=== PATIENT | female | born 1985 | race Caucasian/White ===

== ENCOUNTER → 2021-04-26 19:57 | Outpatient (CLI) | payer OTHER, SELFPAY | PROVIDERS: PCP Physician Assistant; Referring Provider Internal Medicine; Visit Provider Internal Medicine | DX: Z23 Encounter for immunization (principal) | CPT/HCPCS: 90471; 90686 ==

== ENCOUNTER 2021-07-25 10:35 | Emergency (ER) | payer OTHER, SELFPAY ==
[2021-07-25] VITALS (10 sets, daily range): BP systolic 124–159; BP diastolic 76–81; PULSE 70–83; RESP 13–20; TEMP 36.7; O2SAT 98–100; BMI 49.8
--- NOTE | 2021-07-25 10:52 | ED.GIBLEED ---
HPI - GI Bleed General Chief complaint: GI Bleed Stated complaint: diarrhea for 3 days, black this morning Time Seen by Provider: 07/25/21 10:38 Source: patient Mode of arrival: Ambulatory History of Present Illness HPI Narrative: Patient is a 36-year-old female who is here for evaluation of 3 days of diarrhea and 1 day of black colored stools. No recent travel. No recent antibiotic use. No one else in the house has symptoms. Some nausea but no vomiting. No fevers. Has generalized abdominal discomfort. Contacted her doctor today and was told to come to the emergency department for concerns of diverticulitis. Has never had symptoms like this in the past. Related Data Home Medications Medication Instructions Recorded Confirmed ibuprofen 800 mg tablet 800 mg PO Q8H 03/22/21 04/12/21 omeprazole 20 mg capsule,delayed 20 mg PO DAILY 03/22/21 04/12/21 release Previous Rx's Medication Instructions Recorded baclofen 10 mg tablet 10 mg PO QID #60 tab NS 02/05/21 cyclobenzaprine 10 mg tablet 10 mg PO BEDTIME PRN #30 tab 04/12/21 methocarbamol 500 mg tablet 500 mg PO TID PRN #60 tab 04/12/21 gabapentin 100 mg capsule See Rx Instructions .ROUTE 05/28/21 .COMPLEX #180 cap Allergies Allergy/AdvReac Type Severity Reaction Status Date / Time No Known Drug Allergies Allergy Verified 07/25/21 10:43 Review of Systems Constitutional Constitutional: Reports chills and Denies fever(s) Gastrointestinal Gastrointestinal: Reports as per HPI and Reports system reviewed and no additional complaints, except as documented Genitourinary Genitourinary: Reports system reviewed and no additional complaints, except as documented Hematologic/Lymphatic On Anticoagulants: No Patient History Medical History Lumbar spondylosis Social History Smoking Status: Never smoker Smoking Status: Never smoker alcohol intake frequency: holidays/special occasions only Substance Use Type: marijuana Exam Initial Vital Signs Initial Vital Signs: Vital Signs Temperature 98.0 F 07/25/21 10:38 Pulse Rate 82 07/25/21 10:38 Respiratory Rate 18 07/25/21 10:38 Blood Pressure 159/77 H 07/25/21 10:38 Pulse Oximetry 100 07/25/21 10:38 [facility] Head: normal to inspection Resp Effort & Inspection: normal respiratory effort Cardio Rate: regular rate GI Palpation: soft, No firm, No guarding and tender Skin General: no rashes or lesions noted Neuro General: patient alert, patient awake and moves all extremities Extrem General: normal to inspection Psych Appearance: grossly normal and well kempt Course Orders Ordered: Discontinued Medications Sodium Chloride (Normal Saline 0.9%) 1,000 mls @ 1,000 mls/hr IV BOLUS ONE Stop: 07/25/21 11:50 Last Infusion: 07/25/21 13:06 Dose: 0 mls/hr Documented by: JULIO C Admin: 07/25/21 11:33 Dose: 1,000 mls/hr Documented by: JULIO C Vital Signs Vital signs: Vital Signs - 8 hr 07/25/21 10:38 Temperature 98.0 F Pulse Rate 82 Respiratory Rate 18 Blood Pressure 159/77 H Pulse Oximetry 100 MDM - GI Bleed Lab Data Result diagrams: 07/25/21 10:45 07/25/21 10:45 Labs: Lab Results 07/25/21 07/25/21 07/25/21 Range/Units 10:45 10:45 10:45 WBC 5.1 (4.5-11.0) X10^3/uL RBC 4.66 (4.0-5.2) X10^6/uL Hgb 12.0 (12.0-16.0) g/dL Hct 36.9 (36-46) % MCV 79.1 L (80-100) fL MCH 25.7 L (26-34) PG MCHC 32.5 (30-36) % RDW 16.0 H (11.6-14.8) % Plt Count 333 (150-400) X10^3/uL Neut % (Auto) 53.2 (50-75) % Lymph % (Auto) 30.5 (25-40) % [place] % (Auto) 13.3 (3-14) % Eos % (Auto) 2.1 (2-4) % Baso % (Auto) 0.9 (0-2) % Neut # (Auto) 2700 (5129-6370) /uL Lymph # (Auto) 1500 (3518-3845) /uL T[place] # (Auto) 700 (0-900) /uL Eos # (Auto) 100 (0-450) /uL Baso # (Auto) 0 (0-100) /uL Sodium 141 (137-145) mmol/L Potassium 3.8 (3.4-5.1) mmol/L Chloride 106 (98-107) mmol/L Carbon Dioxide 29 (22-32) mmol/L BUN 10 (7-17) mg/dL Creatinine 0.69 (0.52-1.04) mg/dL Estimated GFR > 60.0 (>60) mL/min BUN/Creatinine Ratio 14.5 (6-22) Glucose 107 H (70-100) mg/dL Calcium 9.3 (8.4-10.2) mg/dL Serum , Qual Negative (Negative) Stl C. cayetanensis PCR (Not Detect) Stool Rotavirus (PCR) (Not Detect) Stool Adenovirus (PCR) (Not Detect) Stool Astrovirus (PCR) (Not Detect) Stool Cryptosporidium PCR (Not Detect) Stl E.coli Shiga Tox PCR (Not Detect) St Sh/Enteroin Ecoli PCR (Not Detect) Stool E coli O157 PCR (Not Detect) Stl Enterotoxigenic E PCR (Not Detect) Stool EPEC (PCR) (Not Detect) Stl E. histolytica PCR (Not Detect) Stool Giardia Lamblia PCR (Not Detect) Stool Sapovirus (PCR) (Not Detect) Stl P. shigelloides PCR (Not Detect) St Y.enterocolitica PCR (Not Detect) Stool Vibrio (PCR) (Not Detect) Stl Vibrio cholerae PCR (Not Detect) Stl Enteroaggr Ecoli PCR (Not Detect) Stl Norovirus GI/GII PCR (Not Detect) Campylobacter (PCR) (Not Detect) C. difficile Tox (PCR) (Not Detect) Salmonella (PCR) (Not Detect) 07/25/21 Range/Units 11:05 WBC (4.5-11.0) X10^3/uL RBC (4.0-5.2) X10^6/uL Hgb (12.0-16.0) g/dL Hct (36-46) % MCV (80-100) fL MCH (26-34) PG MCHC (30-36) % RDW (11.6-14.8) % Plt Count (150-400) X10^3/uL Neut % (Auto) (50-75) % Lymph % (Auto) (25-40) % T[place] % (Auto) (3-14) % Eos % (Auto) (2-4) % Baso % (Auto) (0-2) % Neut # (Auto) (3086-0074) /uL Lymph # (Auto) (2502-1387) /uL Tarrant # (Auto) (0-900) /uL Eos # (Auto) (0-450) /uL Baso # (Auto) (0-100) /uL Sodium (137-145) mmol/L Potassium (3.4-5.1) mmol/L Chloride (98-107) mmol/L Carbon Dioxide (22-32) mmol/L BUN (7-17) mg/dL Creatinine (0.52-1.04) mg/dL Estimated GFR (>60) mL/min BUN/Creatinine Ratio (6-22) Glucose (70-100) mg/dL Calcium (8.4-10.2) mg/dL Serum , Qual (Negative) Stl C. cayetanensis PCR Not detected (Not Detect) Stool Rotavirus (PCR) Not detected (Not Detect) Stool Adenovirus (PCR) Not detected (Not Detect) Stool Astrovirus (PCR) Not detected (Not Detect) Stool Cryptosporidium PCR Not detected (Not Detect) Stl E.coli Shiga Tox PCR Not detected (Not Detect) St Sh/Enteroin Ecoli PCR Not detected (Not Detect) Stool E coli O157 PCR Not detected (Not Detect) Stl Enterotoxigenic E PCR Not detected (Not Detect) Stool EPEC (PCR) Not detected (Not Detect) Stl E. histolytica PCR Not detected (Not Detect) Stool Giardia Lamblia PCR Not detected (Not Detect) Stool Sapovirus (PCR) Not detected (Not Detect) Stl P. shigelloides PCR Not detected (Not Detect) St Y.enterocolitica PCR Not detected (Not Detect) Stool Vibrio (PCR) Not detected (Not Detect) Stl Vibrio cholerae PCR Not detected (Not Detect) Stl Enteroaggr Ecoli PCR Not detected (Not Detect) Stl Norovirus GI/GII PCR Not detected (Not Detect) Campylobacter (PCR) Not detected (Not Detect) C. difficile Tox (PCR) Not detected (Not Detect) Salmonella (PCR) Not detected (Not Detect) Imaging Data CT scan - abdomen/pelvis: Radiologist's Impression: [address] [address] [address] Scan Report Signed Patient: Erlinda Waldrop MR#: [id number] : 1985 Acct:[id number] Age/Sex: 36 / F Date of Service: 07/25/21 Loc: ED Accession Number: [id number] ?? Procedure: CT abdomen pelvis w con Ordering Provider: Ganesh Heck D.O. PROCEDURE:? CT ABDOMEN PELVIS W CON ? INDICATIONS:? Diarrhea, little pain concern for diverticulitis ? TECHNIQUE:? After the administration of intravenous contrast, axial sections acquired from the lung bases to the pubic symphysis.? Coronal and sagittal reformats were performed.? For radiation dose reduction, the following was used:? automated exposure control, adjustment of mA and/or kV according to patient size.? ? COMPARISON:? None. ? FINDINGS:? Image quality:? Excellent.? ? Lung bases:? Unremarkable. Heart:? No significant findings. ? ABDOMEN: Liver:? Unremarkable.? ? Gallbladder:? Unremarkable.? ? Biliary ducts:? Unremarkable.? ? Pancreas:? Unremarkable.? ? Spleen:? Unremarkable.? ? Adrenal Glands:? Unremarkable.? ? Kidneys and Ureters:? Unremarkable.? ? ? Stomach and Bowel:? Liquid colonic contents.? Stomach, small bowel loops, and colon are otherwise unremarkable.? Normal appendix. Peritoneum:? No abnormal intraperitoneal fluid.? No free air.? ? Ventral Wall: ? Tiny periumbilical hernia containing fat. Abdominal Nodes:? No retroperitoneal or mesenteric adenopathy by size criteria.? Vessels:? Aorta and inferior vena cava are normal in size.? ? PELVIS: Pelvic Organs:? Bilateral cystic adnexa, within normal limits. Bladder:? Unremarkable.? ? Pelvic Nodes: No enlarged lymph nodes.? Miscellaneous: No hernias are seen.? ? In the subcutaneous fat of the right anterior lateral region just above the inguinal ligament, is an ill-defined soft tissue density measuring 2.1 x 3.2 cm.? Further evaluation with ultrasound is suggested.? Reference image 76/2.? ? Bones:? Unremarkable.? IMPRESSION:? ? 1. No evidence of acute abdominal process. ? 2. There is a ill-defined soft tissue density in the inferior right anterolateral subcutaneous fat, above the inguinal ligament.? It measures 2.1 x 3.2 cm.? It is of uncertain etiology.? It may potentially be related to previous section.? This is not definite. ? Comment:? Recommend correlation with ultrasound for further characterization.? ? Dictated by: Valentino Hull M.D. on 07/25/2021 at 11:39 ? ? Approved by: Valentino Hull M.D. on 07/25/2021 at 11:45?? MDM Narrative Medical decision making narrative: Patient's labs and CT scan are unremarkable. There is no infection noted on the GI panel that would necessitate antibiotics. She does have a benign exam. No indication for surgical consultation. Will discharge home with symptom control and strict return precautions. She expressed understanding and agreement. Discharge Plan Departure Patient Disposition: Home Clinical Impression: Diarrhea Instructions: Diarrhea Activity Restrictions/Additional Instructions: I recommend that you increase your fluid intake and advance your diet as tolerated. You can consider taking a anti diarrheal medicine such as Imodium/loperamide. You can purchase this [id number]. Return to the emergency department for any new or worsening symptoms. Prescriptions: No Action baclofen 10 mg tablet 10 mg PO QID Qty: 60 0RF gabapentin 100 mg capsule See Rx Instructions .ROUTE .COMPLEX Qty: 180 0RF Dose Instruction: TAKE ONE CAPSULE BY MOUTH TWICE A DAY AND TAKE 2-3 CAPSULES BY MOUTH AT BEDTIME NEEDED Rx Instructions: TAKE ONE CAPSULE BY MOUTH TWICE A DAY AND TAKE 2-3 CAPSULES BY MOUTH AT BEDTIME NEEDED ibuprofen 800 mg tablet 800 mg PO Q8H 0RF omeprazole 20 mg capsule,delayed release(DR/EC) 20 mg PO DAILY 0RF methocarbamol 500 mg tablet 500 mg PO TID PRN (Reason: Muscle strain) Qty: 60 1RF cyclobenzaprine 10 mg tablet 10 mg PO BEDTIME PRN (Reason: muscle spasm) Qty: 30 1RF Referrals: Mar Ko PA-C [Primary Care Provider] -
[2021-07-25 10:58] LABS: Add Manual Diff / Slide Review NO; Basophils Absolute Auto 0 /uL (0-100); Basophils Percent Auto 0.9 % (0-2); Eosinophils Absolute Auto 100 /uL (0-450); Eosinophils Percent Auto 2.1 % (2-4); Hematocrit 36.9 % (36-46); Lymphocytes Absolute Auto 1500 /uL (1100-4500); Lymphocytes Percent Auto 30.5 % (25-40); Mean Corpuscular HGB Conc 32.5 % (30-36); Mean Corpuscular Hemoglobin 25.7 PG (26-34); Mean Corpuscular Volume 79.1 fL (80-100); Monocytes Absolute Auto 700 /uL (0-900); Monocytes Percent Auto 13.3 % (3-14); Neutrophils Absolute Auto 2700 /uL (1500-7000); Neutrophils Percent Auto 53.2 % (50-75); Platelet Count 333 X10^3/uL (150-400); Red Blood Cell Count 4.66 X10^6/uL (4.0-5.2); White Blood Cell Count 5.1 X10^3/uL (4.5-11.0)
--- NOTE | 2021-07-25 11:02 | PC.NURSE ---
frankly bloody red stool, half blood half dark brown loose stools
--- NOTE | 2021-07-25 11:05 | DI.CT.S_ITS ---
PROCEDURE: CT ABDOMEN PELVIS W CON INDICATIONS: Diarrhea, little pain concern for diverticulitis TECHNIQUE: After the administration of intravenous contrast, axial sections acquired from the lung bases to the pubic symphysis. Coronal and sagittal reformats were performed. For radiation dose reduction, the following was used: automated exposure control, adjustment of mA and/or kV according to patient size. COMPARISON: None. FINDINGS: Image quality: Excellent. Lung bases: Unremarkable. Heart: No significant findings. ABDOMEN: Liver: Unremarkable. Gallbladder: Unremarkable. Biliary ducts: Unremarkable. Pancreas: Unremarkable. Spleen: Unremarkable. Adrenal Glands: Unremarkable. Kidneys and Ureters: Unremarkable. Stomach and Bowel: Liquid colonic contents. Stomach, small bowel loops, and colon are otherwise unremarkable. Normal appendix. Peritoneum: No abnormal intraperitoneal fluid. No free air. Ventral Wall: Tiny periumbilical hernia containing fat. Abdominal Nodes: No retroperitoneal or mesenteric adenopathy by size criteria. Vessels: Aorta and inferior vena cava are normal in size. PELVIS: Pelvic Organs: Bilateral cystic adnexa, within normal limits. Bladder: Unremarkable. Pelvic Nodes: No enlarged lymph nodes. Miscellaneous: No hernias are seen. In the subcutaneous fat of the right anterior lateral region just above the inguinal ligament, is an ill-defined soft tissue density measuring 2.1 x 3.2 cm. Further evaluation with ultrasound is suggested. Reference image 76/2. Bones: Unremarkable. IMPRESSION: 1. No evidence of acute abdominal process. 2. There is a ill-defined soft tissue density in the inferior right anterolateral subcutaneous fat, above the inguinal ligament. It measures 2.1 x 3.2 cm. It is of uncertain etiology. It may potentially be related to previous section. This is not definite. Comment: Recommend correlation with ultrasound for further characterization. Dictated by: Valentino Hull M.D. on 07/25/2021 at 11:39 Approved by: Valentino Hull M.D. on 07/25/2021 at 11:45
[2021-07-25 11:08] LABS: BUN Creatinine Ratio 14.5 (6-22); Blood Urea Nitrogen 10 mg/dL (7-17); Calcium 9.3 mg/dL (8.4-10.2); Carbon Dioxide 29 mmol/L (22-32); Chloride 106 mmol/L (98-107); Estimated Glomerular Filt Rate > 60.0 mL/min (>60); Glucose 107 mg/dL (70-100); HEMOLYSIS < 15 (0-50); Potassium 3.8 mmol/L (3.4-5.1); Sodium 141 mmol/L (137-145)
[2021-07-25 11:20] LABS: Pregnancy Test Serum,Qual Negative (Negative)
[2021-07-25] MEDS: SODIUM CHLORIDE 0.9% 1,000 ML 1000 ML IV (11:33)
[2021-07-25 12:50] LABS: Adenovirus F 40/41 Not Detected (Not Detect); Astrovirus Not Detected (Not Detect); Campylobacter Not Detected (Not Detect); Clostridium difficile toxin AB Not Detected (Not Detect); Cryptosporidium Not Detected (Not Detect); Cyclospora cayetanensis Not Detected (Not Detect); Entamoeba histolytica Not Detected (Not Detect); Enteroaggregative E.coli Not Detected (Not Detect); Enteropathogenic E.coli Not Detected (Not Detect); Enterotoxigenic E.coli It/st Not Detected (Not Detect); Giardia lamblia Not Detected (Not Detect); Norovirus GI/GII Not Detected (Not Detect); Plesiomonsa shigelloides Not Detected (Not Detect); Rotavirus A Not Detected (Not Detect); Salmonella Not Detected (Not Detect); Sapovirus Not Detected (Not Detect); Shiga-like toxin-prod E.coli Not Detected (Not Detect); Shigella/Enteroinvasive E.coli Not Detected (Not Detect); Vibrio Not Detected (Not Detect); Vibrio cholerae Not Detected (Not Detect); Yersinia enterocolitica Not Detected (Not Detect)
== END 2021-07-25 13:23 | disposition home or self-care (01) ==
PROVIDERS: Emergency Provider Emergency Medicine; PCP Physician Assistant
DX: R19.7 Diarrhea, unspecified (principal); K92.1 Melena
CPT/HCPCS: 36415; 74177; 80048; 84703; 85025; 87507; 96360; 96361; 99284

== ENCOUNTER → 2022-01-04 08:13 | Outpatient (CLI) | payer OTHER, SELFPAY ==
[2022-01-04 18:44] LABS: Cholesterol 180 mg/dL (140-199); HDL Cholesterol 26 mg/dL (40-60); LDL Cholesterol Calculated 89 mg/dL (<100); Triglycerides 326 mg/dL (35-150)
[2022-01-04 20:01] LABS: Hemoglobin A1C% w Est Avg Glu 6.5 % (4.0-6.0)
== END ==
PROVIDERS: PCP Physician Assistant; Visit Provider Physician Assistant
DX: E66.01 Morbid (severe) obesity due to excess calories (principal); R73.03 Prediabetes
CPT/HCPCS: 80061; 83036

== ENCOUNTER → 2022-01-16 10:31 | Outpatient (CLI) | payer OTHER, SELFPAY ==
[2022-01-16 20:39] LABS: Alanine Aminotransferase 23 IU/L (<35); Albumin Globulin Ratio 1.2 (1.0-2.8); Alkaline Phosphatase 67 U/L (38-126); Aspartate Aminotransferase 21 IU/L (14-36); BUN Creatinine Ratio 18.1 (6-22); Bilirubin Total 0.7 mg/dL (0.2-1.3); Blood Urea Nitrogen 15 mg/dL (7-17); Calcium 9.1 mg/dL (8.4-10.2); Carbon Dioxide 26 mmol/L (22-32); Chloride 105 mmol/L (98-107); Estimated Glomerular Filt Rate > 60 mL/min (>60); Globulin 3.3 g/dL (1.7-4.1); Glucose 103 mg/dL (70-100); HEMOLYSIS < 15 (0-50); Potassium 4.3 mmol/L (3.4-5.1); Sodium 139 mmol/L (137-145); Total Protein 7.3 g/dL (6.3-8.2)
[2022-01-17 20:29] LABS: Appearance Urine UA CLEAR; Bilirubin Urine UA NEGATIVE (NEGATIVE); Color Urine UA YELLOW; Glucose Urine UA NEGATIVE (Negative); Ketones Urine UA NEGATIVE (NEGATIVE); Leukocyte Esterase Urine UA NEGATIVE (NEGATIVE); Nitrite Urine UA NEGATIVE (Negative); Occult Blood Urine UA NEGATIVE (Negative); Protein Urine UA NEGATIVE (Negative); Urobilinogen Urine UA 0.2 E.U./dL (0.2)
[2022-01-17 21:18] LABS: Bacteria Urine Few (2-10); Calcium Oxalate Crystals Urine Occasional; Mucus Urine 2+ (Negative); RBC Urine None Seen (0-5/HPF); Squamous Epithelial Cell Urine 1-5 /HPF (0-5/HPF); WBC Urine None Seen (0-5/HPF)
[2022-01-17 21:19] LABS: Culture Indicated Urine Cult Not Indicated
== END ==
PROVIDERS: PCP Physician Assistant; Visit Provider Physician Assistant
DX: R19.7 Diarrhea, unspecified (principal); T50.905A Adverse effect of unspecified drugs, medicaments and biological substances, initial encounter; R30.0 Dysuria
CPT/HCPCS: 80053; 81001

== ENCOUNTER → 2022-03-28 09:19 | Outpatient (CLI) | payer OTHER, SELFPAY ==
[2022-03-28 19:13] LABS: Add Manual Diff / Slide Review NO; Basophils Absolute Auto 100 /uL (0-100); Basophils Percent Auto 0.7 % (0-2); Eosinophils Absolute Auto 500 /uL (0-450); Eosinophils Percent Auto 6.4 % (2-4); Hematocrit 36.8 % (36-46); Hemoglobin 12.1 g/dL (12.0-16.0); Lymphocytes Absolute Auto 1800 /uL (1100-4500); Lymphocytes Percent Auto 22.4 % (25-40); Mean Corpuscular Hemoglobin 26.2 PG (26-34); Mean Corpuscular Volume 79.4 fL (80-100); Monocytes Absolute Auto 500 /uL (0-900); Monocytes Percent Auto 5.6 % (3-14); Neutrophils Absolute Auto 5200 /uL (1500-7000); Neutrophils Percent Auto 64.9 % (50-75); Platelet Count 303 X10^3/uL (150-400); Red Blood Cell Count 4.63 X10^6/uL (4.0-5.2); Red Cell Distribution Width 16.2 % (11.6-14.8)
[2022-03-28 19:16] LABS: Alanine Aminotransferase 25 IU/L (<35); Albumin 3.9 g/dL (3.5-5.0); Albumin Globulin Ratio 1.2 (1.0-2.8); Alkaline Phosphatase 65 U/L (38-126); Aspartate Aminotransferase 24 IU/L (14-36); BUN Creatinine Ratio 17.8 (6-22); Bilirubin Total 0.6 mg/dL (0.2-1.3); Blood Urea Nitrogen 13 mg/dL (7-17); Carbon Dioxide 25 mmol/L (22-32); Chloride 104 mmol/L (98-107); Estimated Glomerular Filt Rate > 60 mL/min (>60); Globulin 3.3 g/dL (1.7-4.1); Glucose 140 mg/dL (70-100); HEMOLYSIS < 15 (0-50); Lipase 73 U/L (23-300); Sodium 140 mmol/L (137-145); Total Protein 7.2 g/dL (6.3-8.2)
[2022-03-28 19:51] LABS: TSH w/ Reflex to FT4 1.11 uIU/mL (0.47-4.68)
== END ==
PROVIDERS: PCP Physician Assistant; Visit Provider Physician Assistant
DX: R10.9 Unspecified abdominal pain (principal); R19.7 Diarrhea, unspecified
CPT/HCPCS: 80053; 83690; 84443; 85025

== ENCOUNTER → 2022-04-15 13:22 | Outpatient (CLI) | payer OTHER, SELFPAY | PROVIDERS: PCP Physician Assistant; Referring Provider Internal Medicine; Visit Provider Internal Medicine | DX: Z23 Encounter for immunization (principal) | CPT/HCPCS: 90471; 90686 ==

== ENCOUNTER → 2022-04-22 10:53 | Outpatient (CLI) | payer OTHER, SELFPAY ==
[2022-04-22 19:19] LABS: Hemoglobin A1C% w Est Avg Glu 5.6 % (4.0-6.0)
== END ==
PROVIDERS: PCP Physician Assistant; Visit Provider Physician Assistant
DX: E11.69 Type 2 diabetes mellitus with other specified complication (principal); E66.9 Obesity, unspecified
CPT/HCPCS: 83036

== ENCOUNTER → 2022-07-31 09:04 | Outpatient (CLI) | payer OTHER, SELFPAY ==
--- NOTE | 2022-07-31 09:05 | DI.US.S_ITS ---
PROCEDURE: US ABDOMEN LIMITED INDICATIONS: RLQ LUMP ON CT TECHNIQUE: Real-time focused scanning was performed of the abdomen, with image documentation. COMPARISON: [facility], CT, CT ABDOMEN PELVIS W EDI, 07/25/2021, 11:02. FINDINGS: There is a 1.7 x 2.0 x 3.0 cm mass without increased vascularity in the subcutaneous fat of the right lower quadrant. This does not communicate with the peritoneal space. IMPRESSION: Hypoechoic mass within the right lower quadrant subcutaneous fat. This is located at the margin of a Caesarean section scar and may represent scar tissue. If prior imaging can be obtained, comparison can be made and an addendum can be issued. Alternatively, 3-6 month follow-up is recommended to ensure stability of this finding. Dictated by: Alysa Churchill M.D. on 07/31/2022 at 10:48 Approved by: Alysa Churchill M.D. on 07/31/2022 at 10:53
== END ==
PROVIDERS: PCP Physician Assistant; Referring Provider Physician Assistant; Visit Provider Physician Assistant
DX: R19.03 Right lower quadrant abdominal swelling, mass and lump (principal)
CPT/HCPCS: 76705

== ENCOUNTER 2023-02-13 10:57 | Emergency (ER) | payer OTHER, SELFPAY ==
[2023-02-13] VITALS (9 sets, daily range): BP systolic 136–160; BP diastolic 67–90; PULSE 65–79; RESP 15–18; TEMP 36.9; O2SAT 96–100; BMI 51.0
[2023-02-13 11:38] LABS: Add Manual Diff / Slide Review NO; Basophils Absolute Auto 100 /uL (0-100); Basophils Percent Auto 0.8 % (0-2); Eosinophils Absolute Auto 200 /uL (0-450); Eosinophils Percent Auto 2.2 % (2-4); Hematocrit 36.4 % (36-46); Lymphocytes Absolute Auto 1900 /uL (1100-4500); Lymphocytes Percent Auto 21.3 % (25-40); Mean Corpuscular HGB Conc 32.8 % (30-36); Mean Corpuscular Hemoglobin 25.7 PG (26-34); Mean Corpuscular Volume 78.3 fL (80-100); Monocytes Absolute Auto 600 /uL (0-900); Monocytes Percent Auto 6.2 % (3-14); Neutrophils Absolute Auto 6200 /uL (1500-7000); Neutrophils Percent Auto 69.5 % (50-75); Platelet Count 328 X10^3/uL (150-400); Red Blood Cell Count 4.65 X10^6/uL (4.0-5.2)
[2023-02-13 11:46] LABS: Alanine Aminotransferase 25 IU/L (<35); Albumin 4.2 g/dL (3.5-5.0); Albumin Globulin Ratio 1.1 (1.0-2.8); Alkaline Phosphatase 68 U/L (38-126); Aspartate Aminotransferase 22 IU/L (14-36); Bilirubin Total 0.6 mg/dL (0.2-1.3); Blood Urea Nitrogen 13 mg/dL (7-17); Calcium 9.1 mg/dL (8.4-10.2); Carbon Dioxide 28 mmol/L (22-32); Chloride 105 mmol/L (98-107); Estimated Glomerular Filt Rate > 60 mL/min (>60); Globulin 3.7 g/dL (1.7-4.1); Glucose 110 mg/dL (70-100); HEMOLYSIS 15 (0-50); Lipase 75 U/L (23-300); Sodium 139 mmol/L (137-145); Total Protein 7.9 g/dL (6.3-8.2)
--- NOTE | 2023-02-13 11:48 | ED_ITS ---
HPI - Abdominal Pain <Komal Smith [employer] - Last Filed: 02/13/23 16:09> General Chief Complaint: Abdominal Pain Stated Complaint: rt side flank pain Time Seen by Provider: 02/13/23 11:48 Source: patient Mode of arrival: Ambulatory History of Present Illness HPI narrative: This is a 37-year-old female presents emergency department complaining right- sided abdominal pain which has been worsening over the last 2 days. She states that yesterday she had a low-grade fever of 99.8 F, has had right upper and right lower quadrant pain that seems progressive. She endorses nausea without vomiting, has diarrhea, denies any blood in her stool. Denies any respiratory symptoms including cough or congestion. States that she has a history of a tubal ligation with 3 C sections in the past, history of ovarian cyst. Denies any other abdominal surgeries. Denies dysuria urinary frequency, states that the pain wraps around to her flank area. When she was evaluated by Dr. Satish Walker for right lower quadrant tenderness to palpation and was sent in for further evaluation with advanced imaging. Related Data Home Medications Medication Instructions Recorded Confirmed omeprazole 20 mg capsule,delayed 20 mg PO DAILY 03/22/21 02/12/23 release Previous Rx's Medication Instructions Recorded tramadol 50 mg tablet 50 mg PO TID PRN pain #21 tabs 04/02/22 semaglutide 0.25 mg or 0.5 mg (2 See Rx Instructions .Route 05/16/22 mg/1.5 mL) subcutaneous pen .COMPLEX #1.5 mL injector (Ozempic) tramadol 50 mg tablet 50 mg PO Q6H PRN pain #28 tabs 05/28/22 baclofen 10 mg tablet See Rx Instructions .Route 01/16/23 .COMPLEX #60 tabs cyclobenzaprine 10 mg tablet 10 mg PO TID PRN muscle spasm #30 01/16/23 tabs gabapentin 100 mg capsule See Rx Instructions .Route 01/16/23 .COMPLEX #180 caps ibuprofen 800 mg tablet 800 mg PO Q8H pain #40 tabs 02/12/23 naproxen 500 mg tablet 500 mg PO BID PRN pain #60 tabs 02/12/23 tramadol 50 mg tablet 50 mg PO BID PRN pain #10 tabs 02/13/23 indomethacin 50 mg capsule 50 mg PO TID PRN pleuritis #30 caps 02/14/23 Allergies Allergy/AdvReac Type Severity Reaction Status Date / Time No Known Drug Allergies Allergy Verified 02/13/23 11:01 Review of Systems <CECE Hollingsworth - Last Filed: 02/13/23 16:09> Review of Systems ROS Unobtainable: All systems reviewed & are unremarkable except as noted in HPI and below Patient History <CECE Hollingsworth - Last Filed: 02/13/23 16:09> Medical History Ankle injury Chicken pox (~1987) Cough Dehydration Encounter for removal of sutures Fall with injury Knee pain Lumbar spondylosis Other bursitis of knee, right knee Ovarian cyst Rotator cuff impingement syndrome of right shoulder Second degree hemorrhoids Sleep apnea (~2014) Tinea corporis Surgical History Anesthesia History of section History of hernia repair (~1983) Family History Mother Diabetes mellitus Hypertension Hyperlipidemia Brother History of heart disease Mental health problem Grandmother Skin cancer Social History Smoking Status: Former smoker Smoking Status: Former smoker alcohol intake frequency: holidays/special occasions only Substance Use Type: marijuana Exam <CECE Hollingsworth - Last Filed: 02/13/23 16:09> Narrative Exam Narrative: Reviewed vitals signs and nursing notes. General: Pleasant, sitting upright, in no acute distress, well groomed, afebrile HEENT: symmetrical facial expressions, moist mucous membranes, neck is supple CV: regular rate and rhythm, warm extremities Respiratory: normal work of breathing, without tachypnea or hypoxia. GI: abdomen soft, nondistended, patient has right-sided CVA tenderness to palpation, positive Olivares sign, tenderness over McBurney's point, no rebound tenderness, pain is exacerbated by deep inspiration, all movement and walking. No masses. Abdomen is obese. MSK: moves all extremities, no weakness, normal tone, ambulatory without deficit Skin: brisk capillary refill, without rash or wound Neuro: clear speech and normal cognition, A&O x3, GCS 15, no focal motor or sensation deficits Initial Vital Signs Initial Vital Signs: Vital Signs Temperature 98.5 F 02/13/23 11:00 Pulse Rate 74 02/13/23 11:00 Respiratory Rate 15 02/13/23 11:00 Blood Pressure 146/89 H 02/13/23 11:00 Pulse Oximetry 100 02/13/23 11:00 Oxygen Delivery Method Room Air 02/13/23 11:00 <Niya Ghosh DO - Last Filed: 02/23/23 01:37> Initial Vital Signs Initial Vital Signs: Vital Signs Temperature 98.5 F 02/13/23 11:00 Pulse Rate 74 02/13/23 11:00 Respiratory Rate 15 02/13/23 11:00 Blood Pressure 146/89 H 02/13/23 11:00 Pulse Oximetry 100 02/13/23 11:00 Oxygen Delivery Method Room Air 02/13/23 11:00 Course <CECE Hollingsworth - Last Filed: 02/13/23 16:09> Orders Ordered: Discontinued Medications Ketorolac Tromethamine (Ketorolac 30 Mg/Ml Vial) 15 mg IV NOW ONE Stop: 02/13/23 11:56 Last Admin: 02/13/23 12:00 Dose: 15 mg Documented By: [place] Ondansetron HCl (Ondansetron 4 Mg/2 Ml Inj) 4 mg IV NOW PRN PRN Reason: Nausea And Vomiting Vital Signs Vital signs: Vital Signs - 8 hr 02/13/23 11:00 02/13/23 11:24 02/13/23 11:25 Temperature 98.5 F Pulse Rate 74 79 Respiratory Rate 15 Blood Pressure 146/89 H 156/76 H Pulse Oximetry 100 98 Oxygen Delivery Method Room Air 02/13/23 11:25 02/13/23 11:30 02/13/23 11:30 Temperature Pulse Rate 78 65 Respiratory Rate Blood Pressure 145/69 H Pulse Oximetry 98 98 Oxygen Delivery Method 02/13/23 12:00 02/13/23 12:01 02/13/23 12:01 Temperature Pulse Rate 72 70 Respiratory Rate Blood Pressure 136/76 Pulse Oximetry 96 97 Oxygen Delivery Method 02/13/23 12:30 02/13/23 12:30 02/13/23 13:00 Temperature Pulse Rate 67 79 Respiratory Rate Blood Pressure 148/67 H Pulse Oximetry 96 96 Oxygen Delivery Method 02/13/23 14:16 Temperature Pulse Rate 65 Respiratory Rate 18 Blood Pressure 160/90 H Pulse Oximetry 96 Oxygen Delivery Method Room Air <Niya Ghosh DO - Last Filed: 02/23/23 01:37> Orders Ordered: Discontinued Medications Ketorolac Tromethamine (Ketorolac 30 Mg/Ml Vial) 15 mg IV NOW ONE Stop: 02/13/23 11:56 Last Admin: 02/13/23 12:00 Dose: 15 mg Documented By: AMV Ondansetron HCl (Ondansetron 4 Mg/2 Ml Inj) 4 mg IV NOW PRN PRN Reason: Nausea And Vomiting Vital Signs Vital signs: Vital Signs - 8 hr 02/13/23 11:00 02/13/23 11:24 02/13/23 11:25 Temperature 98.5 F Pulse Rate 74 79 Respiratory Rate 15 Blood Pressure 146/89 H 156/76 H Pulse Oximetry 100 98 Oxygen Delivery Method Room Air 02/13/23 11:25 02/13/23 11:30 02/13/23 11:30 Temperature Pulse Rate 78 65 Respiratory Rate Blood Pressure 145/69 H Pulse Oximetry 98 98 Oxygen Delivery Method 02/13/23 12:00 02/13/23 12:01 02/13/23 12:01 Temperature Pulse Rate 72 70 Respiratory Rate Blood Pressure 136/76 Pulse Oximetry 96 97 Oxygen Delivery Method 02/13/23 12:30 02/13/23 12:30 02/13/23 13:00 Temperature Pulse Rate 67 79 Respiratory Rate Blood Pressure 148/67 H Pulse Oximetry 96 96 Oxygen Delivery Method 02/13/23 14:16 Temperature Pulse Rate 65 Respiratory Rate 18 Blood Pressure 160/90 H Pulse Oximetry 96 Oxygen Delivery Method Room Air MDM - Abdominal Pain <CECE Hollingsworth - Last Filed: 02/13/23 16:09> Lab Data 02/13/23 11:30 02/13/23 11:30 Labs: Lab Results 02/13/23 02/13/23 02/13/23 Range/Units 10:12 11:30 11:30 WBC 9.0 (4.5-11.0) X10^3/uL RBC 4.65 (4.0-5.2) X10^6/uL Hgb 12.0 (12.0-16.0) g/dL Hct 36.4 (36-46) % MCV 78.3 L (80-100) fL MCH 25.7 L (26-34) PG MCHC 32.8 (30-36) % RDW 16.0 H (11.6-14.8) % Plt Count 328 (150-400) X10^3/uL Neut % (Auto) 69.5 (50-75) % Lymph % (Auto) 21.3 L (25-40) % [place] % (Auto) 6.2 (3-14) % Eos % (Auto) 2.2 (2-4) % Baso % (Auto) 0.8 (0-2) % Neut # (Auto) 6200 (0194-4678) /uL Lymph # (Auto) 1900 (0623-3408) /uL [place] # (Auto) 600 (0-900) /uL Eos # (Auto) 200 (0-450) /uL Baso # (Auto) 100 (0-100) /uL Sodium 139 (137-145) mmol/L Potassium 4.0 (3.4-5.1) mmol/L Chloride 105 (98-107) mmol/L Carbon Dioxide 28 (22-32) mmol/L BUN 13 (7-17) mg/dL Creatinine 0.59 (0.52-1.04) mg/dL Estimated GFR > 60 (>60) mL/min BUN/Creatinine Ratio 22.0 (6-22) Glucose 110 H (70-100) mg/dL Calcium 9.1 (8.4-10.2) mg/dL Total Bilirubin 0.6 (0.2-1.3) mg/dL AST 22 (14-36) IU/L ALT 25 (<35) IU/L Alkaline Phosphatase 68 (38-126) U/L Total Protein 7.9 (6.3-8.2) g/dL Albumin 4.2 (3.5-5.0) g/dL Globulin 3.7 (1.7-4.1) g/dL Albumin/Globulin Ratio 1.1 (1.0-2.8) Lipase 75 (23-300) U/L Urine RBC 0-1/hpf (0-5/HPF) Urine WBC 0-1/hpf (0-5/HPF) Ur Squamous Epith Cells 5-10 /hpf H (0-5/HPF) Urine Bacteria None seen (None) Ur Culture Indicated? Cult not indicated SARS-CoV-2 (PCR) (Negative) Influenza A (RT-PCR) (NEGATIVE) Influenza B (RT-PCR) (NEGATIVE) RSV (PCR) (Negative) 02/13/23 Range/Units 14:08 WBC (4.5-11.0) X10^3/uL RBC (4.0-5.2) X10^6/uL Hgb (12.0-16.0) g/dL Hct (36-46) % MCV (80-100) fL MCH (26-34) PG MCHC (30-36) % RDW (11.6-14.8) % Plt Count (150-400) X10^3/uL Neut % (Auto) (50-75) % Lymph % (Auto) (25-40) % Hamilton % (Auto) (3-14) % Eos % (Auto) (2-4) % Baso % (Auto) (0-2) % Neut # (Auto) (0790-8090) /uL Lymph # (Auto) (3704-3349) /uL Hamilton # (Auto) (0-900) /uL Eos # (Auto) (0-450) /uL Baso # (Auto) (0-100) /uL Sodium (137-145) mmol/L Potassium (3.4-5.1) mmol/L Chloride (98-107) mmol/L Carbon Dioxide (22-32) mmol/L BUN (7-17) mg/dL Creatinine (0.52-1.04) mg/dL Estimated GFR (>60) mL/min BUN/Creatinine Ratio (6-22) Glucose (70-100) mg/dL Calcium (8.4-10.2) mg/dL Total Bilirubin (0.2-1.3) mg/dL AST (14-36) IU/L ALT (<35) IU/L Alkaline Phosphatase (38-126) U/L Total Protein (6.3-8.2) g/dL Albumin (3.5-5.0) g/dL Globulin (1.7-4.1) g/dL Albumin/Globulin Ratio (1.0-2.8) Lipase (23-300) U/L Urine RBC (0-5/HPF) Urine WBC (0-5/HPF) Ur Squamous Epith Cells (0-5/HPF) Urine Bacteria (None) Ur Culture Indicated? SARS-CoV-2 (PCR) Negative (Negative) Influenza A (RT-PCR) Flu a negative (NEGATIVE) Influenza B (RT-PCR) Flu b negative (NEGATIVE) RSV (PCR) Negative (Negative) Point of care testing: Point of Care Testing Test Results Negative Urine Dip Bedside Urine Glucose Negative Bedside Urine Bilirubin - Negative Bedside Urine Ketone - Negative Urine Specific [place] 1.015 Bedside Urine Occult Blood - Negative Bedside Urine pH 6.0 Bedside Urine Protein - Negative Bedside Urine Urobilinogen - Negative Bedside Urine Nitrite - Negative Bedside Urine Leukocytes - Negative Esterase Imaging Data US - abdomen: Radiologist's Impression: [address] [address] Ultrasound Report Signed Patient: Erlinda Waldrop MR#: [id number] : 1985 Acct:[id number] Age/Sex: 37 / F Date of Service: 02/13/23 Loc: ED Accession Number: [id number] ?? Procedure: US abdomen limited Ordering Provider: Komal Smith PROCEDURE:? US ABDOMEN LIMITED ? INDICATIONS:? RIGHT UPPER QUADRANT TENDERNESS ? TECHNIQUE:? Real-time scanning was performed of the abdominal and retroperitoneal organs, with image documentation.? ? COMPARISON:? Merged With [facility], , US ABDOMEN LIMITED, 07/31/2022, 9:15. ? FINDINGS:? ? Liver:? The liver is increased in echogenicity.? The liver is enlarged measuring 20 centimeters. ? Gallbladder:? The gallbladder is within normal limits.? ? Biliary ducts:? Intrahepatic bile ducts are non-dilated.? Extrahepatic bile duct caliber measures 4 mm.? Normal is 6-7 mm or less in diameter, or 10 mm or less post-cholecystectomy.? ? Pancreas:? Visualized portions of the pancreas are sonographically normal.? ? IMPRESSION:? ? 1. The gallbladder is within normal limits. 2. Hepatomegaly and hepatic steatosis. ? Dictated by: Juan Thompson M.D. on 02/13/2023 at 12:38 ? ? Approved by: Juan hTompson M.D. on 02/13/2023 at 12:41 ? CT scan - abdomen/pelvis: Radiologist's Impression: [address] [address] [address] Scan Report Signed Patient: Erlinda Waldrop MR#: [id number] : 1985 Acct:[id number] Age/Sex: 37 / F Date of Service: 02/13/23 Loc: ED Number: [id number] ?? Procedure: CT abdomen pelvis w con Ordering Provider: Komal Smith PROCEDURE:? CT ABDOMEN PELVIS W CON ? INDICATIONS:? RUQ tenderness RLQ and flank tenderness to palp ? TECHNIQUE:? After the administration of intravenous contrast, axial sections acquired from the lung bases to the pubic symphysis.? Coronal and sagittal reformats were performed.? For radiation dose reduction, the following was used:? automated exposure control, adjustment of mA and/or kV according to patient size.? ? COMPARISON:? Merged With [facility], CT, CT ABDOMEN PELVIS W CON, 07/25/2021, 11:02. ? FINDINGS:? Image quality:? Excellent.? ? Lung bases:? Unremarkable. Heart:? No significant findings. ? ABDOMEN: Liver:? Unremarkable.? ? Gallbladder:? Unremarkable.? ? Biliary ducts:? Unremarkable.? ? Pancreas:? Unremarkable.? ? Spleen:? Unremarkable.? ? Adrenal Glands:? Unremarkable.? ? Kidneys and Ureters:? Unremarkable.? ? ? Stomach and Bowel:? Stomach, small bowel loops, and colon are unremarkable.? Normal appendix. Peritoneum:? No abnormal intraperitoneal fluid.? No free air.? ? Ventral Wall: ? No hernias.? Abdominal Nodes:? No retroperitoneal or mesenteric adenopathy by size criteria.? Vessels:? Aorta and inferior vena cava are normal in size.? ? PELVIS: Pelvic Organs:? Unremarkable.? ? Bladder:? Decompressed, limiting evaluation. Pelvic Nodes: No enlarged lymph nodes.? Miscellaneous: No hernias are seen.? Is similar appearance of ill-defined soft tissue density within the right inferior anterolateral subcutaneous fat.? ? ? Bones:? Unremarkable.? IMPRESSION:? ? 1. No findings to explain patient's symptoms.? No acute abnormalities within the abdomen or pelvis. 2. Similar appearance of ill-defined soft tissue density within the right inferior anterolateral subcutaneous fat, may represent scarring from previous section. ? ? Dictated by: Juan Thompson M.D. on 02/13/2023 at 13:52 ? ? Approved by: Juan Thompson M.D. on 02/13/2023 at 13:57 ? MDM Narrative Medical decision making narrative: Chief Complaint: Right-sided abdominal pain, diarrhea Multiple etiologies for patient's complaint considered including, but not limited to: Gastroenteritis, acute viral illness, cholelithiasis, cholecystitis, colitis, appendicitis, nephrolithiasis, pyelonephritis, obstructive uropathy, perforated viscus I have independently reviewed the patient's vital signs and nursing notes as well as prior records if available. Plan: Pain control with Dilaudid, lab work, positive Olivares sign and tenderness over McBurney's point will obtain right upper quadrant ultrasound and CT abdomen pelvis with contrast. Course of Care: Patient's lab work overall is unremarkable, no leukocytosis or anemia, mild lymphopenia, chemistries unremarkable, liver enzymes are within normal limits and her lipase is not elevated. UA is aseptic. Abdominal ult rasound shows hepatomegaly and hepatic steatosis without gallbladder abnormality. CT ABDOMEN PELVIS DID NOT FIND ANY ABNORMAL FINDINGS TO EXPLAIN PATIENT'S SYMPTOMS. A COVID RESPIRATORY panel was ordered prior to discharge, will phone patient and let her know if this is positive prior to discharge. I presume this is most likely gastroenteritis with a viral source. Her symptoms improved with Toradol. Encourage hydration with clear fluids, return for worsening symptoms, follow up with PCP as needed. Patient's COVID, influenza a, B and RSV are all negative via PCR. She was discharged with strict return precautions for worsening symptoms, this could be an early appendicitis however patient is having stools, no leukocytosis, no vomiting and no significant dehydration.. She was given a prescription of tramadol to use for pain, encouraged to monitor her stool, return for new or worsening symptoms, progressive pain, fever chills. Social considerations that may affect disposition: none Questions are addressed and there is agreement with the plan and for follow-up. I consulted with the ED attending physician Dr. cartwright as needed for higher level of care considerations and they were available for discussion and recommendations regarding plan of care and diagnostic testing. Patient is appropriate for outpatient management. <Niya Ghosh, DO - Last Filed: 02/23/23 01:37> Lab Data Labs: Lab Results 02/13/23 02/13/23 02/13/23 Range/Units 10:12 11:30 11:30 WBC 9.0 (4.5-11.0) X10^3/uL RBC 4.65 (4.0-5.2) X10^6/uL Hgb 12.0 (12.0-16.0) g/dL Hct 36.4 (36-46) % MCV 78.3 L (80-100) fL MCH 25.7 L (26-34) PG MCHC 32.8 (30-36) % RDW 16.0 H (11.6-14.8) % Plt Count 328 (150-400) X10^3/uL Neut % (Auto) 69.5 (50-75) % Lymph % (Auto) 21.3 L (25-40) % [place] % (Auto) 6.2 (3-14) % Eos % (Auto) 2.2 (2-4) % Baso % (Auto) 0.8 (0-2) % Neut # (Auto) 6200 (4697-8308) /uL Lymph # (Auto) 1900 (9128-8694) /uL [place] # (Auto) 600 (0-900) /uL Eos # (Auto) 200 (0-450) /uL Baso # (Auto) 100 (0-100) /uL Sodium 139 (137-145) mmol/L Potassium 4.0 (3.4-5.1) mmol/L Chloride 105 (98-107) mmol/L Carbon Dioxide 28 (22-32) mmol/L BUN 13 (7-17) mg/dL Creatinine 0.59 (0.52-1.04) mg/dL Estimated GFR > 60 (>60) mL/min BUN/Creatinine Ratio 22.0 (6-22) Glucose 110 H (70-100) mg/dL Calcium 9.1 (8.4-10.2) mg/dL Total Bilirubin 0.6 (0.2-1.3) mg/dL AST 22 (14-36) IU/L ALT 25 (<35) IU/L Alkaline Phosphatase 68 (38-126) U/L Total Protein 7.9 (6.3-8.2) g/dL Albumin 4.2 (3.5-5.0) g/dL Globulin 3.7 (1.7-4.1) g/dL Albumin/Globulin Ratio 1.1 (1.0-2.8) Lipase 75 (23-300) U/L Urine RBC 0-1/hpf (0-5/HPF) Urine WBC 0-1/hpf (0-5/HPF) Ur Squamous Epith Cells 5-10 /hpf H (0-5/HPF) Urine Bacteria None seen (None) Ur Culture Indicated? Cult not indicated SARS-CoV-2 (PCR) (Negative) Influenza A (RT-PCR) (NEGATIVE) Influenza B (RT-PCR) (NEGATIVE) RSV (PCR) (Negative) 02/13/23 Range/Units 14:08 WBC (4.5-11.0) X10^3/uL RBC (4.0-5.2) X10^6/uL Hgb (12.0-16.0) g/dL Hct (36-46) % MCV (80-100) fL MCH (26-34) PG MCHC (30-36) % RDW (11.6-14.8) % Plt Count (150-400) X10^3/uL Neut % (Auto) (50-75) % Lymph % (Auto) (25-40) % Hamilton % (Auto) (3-14) % Eos % (Auto) (2-4) % Baso % (Auto) (0-2) % Neut # (Auto) (6994-2230) /uL Lymph # (Auto) (6339-9793) /uL Hamilton # (Auto) (0-900) /uL Eos # (Auto) (0-450) /uL Baso # (Auto) (0-100) /uL Sodium (137-145) mmol/L Potassium (3.4-5.1) mmol/L Chloride (98-107) mmol/L Carbon Dioxide (22-32) mmol/L BUN (7-17) mg/dL Creatinine (0.52-1.04) mg/dL Estimated GFR (>60) mL/min BUN/Creatinine Ratio (6-22) Glucose (70-100) mg/dL Calcium (8.4-10.2) mg/dL Total Bilirubin (0.2-1.3) mg/dL AST (14-36) IU/L ALT (<35) IU/L Alkaline Phosphatase (38-126) U/L Total Protein (6.3-8.2) g/dL Albumin (3.5-5.0) g/dL Globulin (1.7-4.1) g/dL Albumin/Globulin Ratio (1.0-2.8) Lipase (23-300) U/L Urine RBC (0-5/HPF) Urine WBC (0-5/HPF) Ur Squamous Epith Cells (0-5/HPF) Urine Bacteria (None) Ur Culture Indicated? SARS-CoV-2 (PCR) Negative (Negative) Influenza A (RT-PCR) Flu a negative (NEGATIVE) Influenza B (RT-PCR) Flu b negative (NEGATIVE) RSV (PCR) Negative (Negative) Point of care testing: Point of Care Testing Test Results Negative Urine Dip Bedside Urine Glucose Negative Bedside Urine Bilirubin - Negative Bedside Urine Ketone - Negative Urine Specific [place] 1.015 Bedside Urine Occult Blood - Negative Bedside Urine pH 6.0 Bedside Urine Protein - Negative Bedside Urine Urobilinogen - Negative Bedside Urine Nitrite - Negative Bedside Urine Leukocytes - Negative Esterase Discharge Plan Departure Patient Disposition: Home Clinical Impression: Abdominal pain, Diarrhea Instructions: Acute Abdominal Pain Activity Restrictions/Additional Instructions: *You have been diagnosed with no acute abnormalities visualized on your imaging both ultrasound and CT. This is great news, I think this is most likely a viral gastroenteritis and we will call you if the respiratory panel comes back positive for influenza, RSV or COVID. Please try stay hydrated with clear fluids. There is no evidence of gallbladder, kidney, bowel or other abnormality in your abdomen and flank. The urine and lab work were both reassuring as well. I am sorry for your pain as I imagine this is distressing. Please continue to take omeprazole and you can take tramadol as needed for your pain. This may calm down your bowel. If you have any worsening or develop fever with chills please go in for another evaluation as there could be something developing which does not present itself fully today. *What to do: *Please continue to take your regular medications as directed. [ x] New medication prescriptions sent to your pharmacy: [Rays ] [ ] New medication written as a paper prescription [ ] No new medications given *Please call and schedule follow up with your primary care provider in 2-3 days, at least for an update. Let them know you were seen in the Emergency Department for the above problem. We will electronically transmit a record of today's note if your PCP or specialist is in our system. *If you do not have a primary care provider please contact [phone] to establish care with one of the [facility] primary care providers. *Return to the Emergency Department for worsening symptoms, inability to keep liquids down, fever greater than 101F, chills, or other concerning symptom. Prescriptions: New tramadol 50 mg tablet 50 mg PO BID PRN (Reason: pain) Qty: 10 0RF No Action tramadol 50 mg tablet 50 mg PO TID PRN (Reason: pain) Qty: 21 0RF Rx Instructions: use sparingly Ozempic 0.25 mg or 0.5 mg(2 mg/1.5 mL) pen injector See Rx Instructions .ROUTE .COMPLEX Qty: 1.5 11RF Dose Instruction: INJECT 0.25 MG SUBCUTANEOUSLY ONCE PER WEEK FOR 4 WEEKS THEN INCREASE TO 0.5 MG SUBCUTANEOUSLY ONCE WEEKLY FOR 4 WEEKS Rx Instructions: INJECT 0.25 MG SUBCUTANEOUSLY ONCE PER WEEK FOR 4 WEEKS THEN INCREASE TO 0.5 MG SUBCUTANEOUSLY ONCE WEEKLY FOR 4 WEEKS tramadol 50 mg tablet 50 mg PO Q6H PRN (Reason: pain) Qty: 28 0RF indomethacin 50 mg capsule 50 mg PO TID PRN (Reason: pleuritis) Qty: 30 0RF Rx Instructions: administer with food or milk omeprazole 20 mg capsule,delayed release(DR/EC) 20 mg PO DAILY gabapentin 100 mg capsule See Rx Instructions .ROUTE .COMPLEX Qty: 180 0RF Dose Instruction: TAKE ONE CAPSULE BY MOUTH TWICE A DAY AND TAKE 2-3 CAPSULES AT BEDTIME NEEDED Rx Instructions: TAKE ONE CAPSULE BY MOUTH TWICE A DAY AND TAKE 2-3 CAPSULES AT BEDTIME NEEDED baclofen 10 mg tablet See Rx Instructions .ROUTE .COMPLEX Qty: 60 0RF Dose Instruction: TAKE ONE TABLET BY MOUTH FOUR TIMES A DAY Rx Instructions: TAKE ONE TABLET BY MOUTH FOUR TIMES A DAY; do not combine with flexeril cyclobenzaprine 10 mg tablet 10 mg PO TID PRN (Reason: muscle spasm) Qty: 30 0RF Rx Instructions: do not combine with baclofen ibuprofen 800 mg tablet 800 mg PO Q8H Qty: 40 0RF naproxen 500 mg tablet 500 mg PO BID PRN (Reason: pain) Qty: 60 0RF Rx Instructions: do not combine with ibuprofen Referrals: Faith Jennings PA-C [Primary Care Provider] - Satish Walker MD [Physician] - Stand Alone Forms: Patient Portal/API <Niya Ghosh DO - Last Filed: 02/23/23 01:37> Cosign ED Attending Ximenaature Attestation: I was immediately available in the department for consultation. Documentation has been reviewed.
[2023-02-13 11:55] LABS: Bacteria Urine None Seen; Culture Indicated Urine Cult Not Indicated; RBC Urine 0-1/HPF (0-5/HPF); Squamous Epithelial Cell Urine 5-10 /HPF (0-5/HPF); WBC Urine 0-1/HPF (0-5/HPF)
--- NOTE | 2023-02-13 11:55 | DI.US.S_ITS ---
PROCEDURE: US ABDOMEN LIMITED INDICATIONS: RIGHT UPPER QUADRANT TENDERNESS TECHNIQUE: Real-time scanning was performed of the abdominal and retroperitoneal organs, with image documentation. COMPARISON: [facility], , US ABDOMEN LIMITED, 07/31/2022, 9:15. FINDINGS: Liver: The liver is increased in echogenicity. The liver is enlarged measuring 20 centimeters. Gallbladder: The gallbladder is within normal limits. Biliary ducts: Intrahepatic bile ducts are non-dilated. Extrahepatic bile duct caliber measures 4 mm. Normal is 6-7 mm or less in diameter, or 10 mm or less post-cholecystectomy. Pancreas: Visualized portions of the pancreas are sonographically normal. IMPRESSION: 1. The gallbladder is within normal limits. 2. Hepatomegaly and hepatic steatosis. Dictated by: Juan Thompson M.D. on 02/13/2023 at 12:38 Approved by: Juan Thompson M.D. on 02/13/2023 at 12:41
--- NOTE | 2023-02-13 11:56 | DI.CT.S_ITS ---
PROCEDURE: CT ABDOMEN PELVIS W CON INDICATIONS: RUQ tenderness RLQ and flank tenderness to palp TECHNIQUE: After the administration of intravenous contrast, axial sections acquired from the lung bases to the pubic symphysis. Coronal and sagittal reformats were performed. For radiation dose reduction, the following was used: automated exposure control, adjustment of mA and/or kV according to patient size. COMPARISON: [facility], CT, CT ABDOMEN PELVIS W CON, 07/25/2021, 11:02. FINDINGS: Image quality: Excellent. Lung bases: Unremarkable. Heart: No significant findings. ABDOMEN: Liver: Unremarkable. Gallbladder: Unremarkable. Biliary ducts: Unremarkable. Pancreas: Unremarkable. Spleen: Unremarkable. Adrenal Glands: Unremarkable. Kidneys and Ureters: Unremarkable. Stomach and Bowel: Stomach, small bowel loops, and colon are unremarkable. Normal appendix. Peritoneum: No abnormal intraperitoneal fluid. No free air. Ventral Wall: No hernias. Abdominal Nodes: No retroperitoneal or mesenteric adenopathy by size criteria. Vessels: Aorta and inferior vena cava are normal in size. PELVIS: Pelvic Organs: Unremarkable. Bladder: Decompressed, limiting evaluation. Pelvic Nodes: No enlarged lymph nodes. Miscellaneous: No hernias are seen. Is similar appearance of ill-defined soft tissue density within the right inferior anterolateral subcutaneous fat. Bones: Unremarkable. IMPRESSION: 1. No findings to explain patient's symptoms. No acute abnormalities within the abdomen or pelvis. 2. Similar appearance of ill-defined soft tissue density within the right inferior anterolateral subcutaneous fat, may represent scarring from previous section. Dictated by: Juan Thompson M.D. on 02/13/2023 at 13:52 Approved by: Juan Thompson M.D. on 02/13/2023 at 13:57
[2023-02-13] MEDS: KETOROLAC 30 MG/ML VIAL 15 MG IV (12:00)
[2023-02-13 14:51] LABS: Influenza A - CEPHEID Flu A NEGATIVE (NEGATIVE); Influenza B - CEPHEID Flu B NEGATIVE (NEGATIVE); Respiratory Syncytial Virus Negative (Negative)
[2023-02-13 15:04] LABS: COVID-19 CEPHEID 4-PLEX PCR Negative (Negative)
== END 2023-02-13 14:16 | disposition home or self-care (01) ==
PROVIDERS: Emergency Medicine; Emergency Provider Nurse Practitioner Critical Care Medicine; PCP Physician Assistant
DX: R10.31 Right lower quadrant pain (principal); R19.7 Diarrhea, unspecified; R50.9 Fever, unspecified; Z20.822 Contact with and (suspected) exposure to COVID-19
CPT/HCPCS: 0241U; 36415; 74177; 76705; 80053; 81003; 81015; 81025; 83690; 85025; 96374; 99284; J1885; Q9967

== ENCOUNTER → 2023-04-02 13:06 | Outpatient (CLI) | payer OTHER, SELFPAY | PROVIDERS: PCP Family Medicine; Referring Provider Family Medicine; Visit Provider Family Medicine | DX: Z23 Encounter for immunization (principal) | CPT/HCPCS: 90471; 90686 ==

== ENCOUNTER → 2023-05-27 11:00 | Outpatient (CLI) | payer OTHER, SELFPAY ==
[2023-05-27 20:35] LABS: Respiratory Syncytial Virus NEGATIVE (Not Detect)
== END ==
PROVIDERS: PCP Family Medicine; Visit Provider Physician Assistant
DX: R05.9 Cough, unspecified (principal)
CPT/HCPCS: 87634

== ENCOUNTER → 2023-08-26 08:20 | Outpatient (CLI) | payer OTHER, SELFPAY ==
[2023-08-26 19:09] LABS: Alanine Aminotransferase 28 IU/L (<35); Albumin 3.8 g/dL (3.5-5.0); Albumin Globulin Ratio 1.1 (1.0-2.8); Alkaline Phosphatase 82 U/L (38-126); Aspartate Aminotransferase 24 IU/L (14-36); BUN Creatinine Ratio 37.1 (6-22); Bilirubin Total 0.9 mg/dL (0.2-1.3); Blood Urea Nitrogen 23 mg/dL (7-17); Calcium 9.3 mg/dL (8.4-10.2); Carbon Dioxide 24 mmol/L (22-32); Chloride 105 mmol/L (98-107); Cholesterol 170 mg/dL (140-199); Estimated Glomerular Filt Rate > 60 mL/min (>60); Globulin 3.5 g/dL (1.7-4.1); Glucose 159 mg/dL (70-100); HDL Cholesterol 30 mg/dL (40-60); HEMOLYSIS < 15 (0-50); LDL Cholesterol Calculated 61 mg/dL (<100); Potassium 4.2 mmol/L (3.4-5.1); Sodium 137 mmol/L (137-145); Total Protein 7.3 g/dL (6.3-8.2); Triglycerides 393 mg/dL (35-150)
[2023-08-26 19:12] LABS: Add Manual Diff / Slide Review NO; Basophils Absolute Auto 100 /uL (0-100); Basophils Percent Auto 1.3 % (0-2); Eosinophils Absolute Auto 400 /uL (0-450); Eosinophils Percent Auto 4.2 % (2-4); Hemoglobin 12.6 g/dL (12.0-16.0); Lymphocytes Absolute Auto 2000 /uL (1100-4500); Mean Corpuscular HGB Conc 33.2 % (30-36); Mean Corpuscular Hemoglobin 26.2 PG (26-34); Monocytes Absolute Auto 700 /uL (0-900); Monocytes Percent Auto 8.4 % (3-14); Neutrophils Absolute Auto 5700 /uL (1500-7000); Neutrophils Percent Auto 64.1 % (50-75); Platelet Count 315 X10^3/uL (150-400); Red Blood Cell Count 4.81 X10^6/uL (4.0-5.2); Red Cell Distribution Width 15.2 % (11.6-14.8); White Blood Cell Count 8.9 X10^3/uL (4.5-11.0)
[2023-08-26 19:35] LABS: Hemoglobin A1C% w Est Avg Glu 7.3 % (4.0-6.0)
[2023-08-26 19:44] LABS: Creatinine Urine Random 295.7 mg/dL
[2023-08-26 20:00] LABS: Microalbumi Creatinin Ratio Ur 18.9 ug/mg CR (<30); Microalbumin Urine Random 5.6 mg/dL (0-1.6)
[2023-08-26 20:49] LABS: Urine N gonorrhoeae NOT DETECTED
[2023-08-26 20:51] LABS: Urine Chlamydia NOT DETECTED
[2023-08-28 04:17] LABS: RPR Screen Non Reactive (Non Reactive)
[2023-08-28 16:55] LABS: HIV 1 & 2 Ab/Ag 4th Gen Combo NEGATIVE (NEGATIVE)
== END ==
PROVIDERS: Physician Assistant; PCP Family Medicine; Visit Provider Family Medicine
DX: E11.69 Type 2 diabetes mellitus with other specified complication (principal); E66.9 Obesity, unspecified; Z11.3 Encounter for screening for infections with a predominantly sexual mode of transmission
CPT/HCPCS: 80053; 80061; 82043; 82570; 83036; 85025; 86592; 87389; 87491; 87591

== ENCOUNTER → 2023-10-08 08:38 | Outpatient (CLI) | payer OTHER, SELFPAY ==
[2023-10-08 20:17] LABS: Prothrombin Time 11.4 SECONDS (9.4-12.5)
[2023-10-08 20:26] LABS: PTT Partial Thromboplastin Tim 37 SECONDS (25.1-36.5)
[2023-10-08 20:32] LABS: HEMOLYSIS < 15 (0-50)
[2023-10-08 20:36] LABS: Add Manual Diff / Slide Review NO; Basophils Absolute Auto 100 /uL (0-100); Eosinophils Absolute Auto 300 /uL (0-450); Eosinophils Percent Auto 2.9 % (2-4); Hematocrit 39.1 % (36-46); Hemoglobin 12.5 g/dL (12.0-16.0); Lymphocytes Absolute Auto 1800 /uL (1100-4500); Lymphocytes Percent Auto 20.3 % (25-40); Mean Corpuscular HGB Conc 32.1 % (30-36); Mean Corpuscular Hemoglobin 26.3 PG (26-34); Mean Corpuscular Volume 81.9 fL (80-100); Monocytes Absolute Auto 600 /uL (0-900); Monocytes Percent Auto 6.4 % (3-14); Neutrophils Absolute Auto 6100 /uL (1500-7000); Neutrophils Percent Auto 69.4 % (50-75); Platelet Count 336 X10^3/uL (150-400); Red Blood Cell Count 4.78 X10^6/uL (4.0-5.2); Red Cell Distribution Width 15.6 % (11.6-14.8); White Blood Cell Count 8.8 X10^3/uL (4.5-11.0)
[2023-10-08 20:37] LABS: Alanine Aminotransferase 27 IU/L (<35); Albumin 3.9 g/dL (3.5-5.0); Albumin Globulin Ratio 1.1 (1.0-2.8); Alkaline Phosphatase 75 U/L (38-126); Aspartate Aminotransferase 23 IU/L (14-36); BUN Creatinine Ratio 34.4 (6-22); Bilirubin Total 0.8 mg/dL (0.2-1.3); Blood Urea Nitrogen 21 mg/dL (7-17); Calcium 9.7 mg/dL (8.4-10.2); Carbon Dioxide 25 mmol/L (22-32); Chloride 109 mmol/L (98-107); Cholesterol 184 mg/dL (140-199); Estimated Glomerular Filt Rate > 60 mL/min (>60); Globulin 3.6 g/dL (1.7-4.1); Glucose 130 mg/dL (70-100); HDL Cholesterol 35 mg/dL (40-60); LDL Cholesterol Calculated 106 mg/dL (<100); Potassium 4.2 mmol/L (3.4-5.1); Sodium 139 mmol/L (137-145); Total Protein 7.5 g/dL (6.3-8.2); Triglycerides 217 mg/dL (35-150)
[2023-10-08 20:51] LABS: Hemoglobin A1C% w Est Avg Glu 6.7 % (4.0-6.0)
[2023-10-08 20:55] LABS: Vitamin D 25 Hydroxy (D3) 18.5 ng/mL (30.0-100.0)
[2023-10-08 21:14] LABS: Ferritin 13 ng/mL (6-137)
[2023-10-08 21:28] LABS: Creatinine Urine Random 194.6 mg/dL
[2023-10-08 21:32] LABS: Microalbumi Creatinin Ratio Ur 15.9 ug/mg CR (<30); Microalbumin Urine Random 3.1 mg/dL (0-1.6)
[2023-10-08 22:54] LABS: HEMOLYSIS < 15 (0-50); Iron 58 ug/dL (37-170)
[2023-10-08 23:07] LABS: Percent Iron Saturation 14 % (15-50); Total Iron Binding Capacity 429 ug/dL (265-497); Transferrin 350 mg/dL (206-381)
[2023-10-09 15:04] LABS: Vitamin B12 317 pg/mL (239-931)
[2023-10-10 05:35] LABS: Free T3, Triiodothyronine Free 4.44 pg/mL (2.77-5.27)
[2023-10-10 05:59] LABS: Thyroid Stimulating Hormone 1.55 uIU/mL (0.47-4.68)
[2023-10-10 06:29] LABS: Folate 5.6 ng/mL (2.76-20.0)
[2023-10-12 00:36] LABS: Vitamin B1 149.8 nmol/L (66.5-200.0)
== END ==
PROVIDERS: Surgery; PCP Family Medicine
DX: E63.9 Nutritional deficiency, unspecified (principal); E51.9 Thiamine deficiency, unspecified; E46 Unspecified protein-calorie malnutrition; Z01.812 Encounter for preprocedural laboratory examination; I10 Essential (primary) hypertension; E78.2 Mixed hyperlipidemia; E11.9 Type 2 diabetes mellitus without complications
CPT/HCPCS: 80053; 80061; 82043; 82306; 82570; 82607; 82728; 82746; 83036; 83540; 83550; 84425; 84443; 84481; 85025; 85610; 85730

== ENCOUNTER → 2024-04-16 07:46 | Outpatient (CLI) | payer OTHER, SELFPAY ==
[2024-04-16 21:47] LABS: Add Manual Diff / Slide Review NO; Basophils Absolute Auto 100 /uL (0-100); Basophils Percent Auto 0.6 % (0-2); Eosinophils Absolute Auto 200 /uL (0-450); Eosinophils Percent Auto 1.8 % (2-4); Hematocrit 37.3 % (36-46); Lymphocytes Absolute Auto 1900 /uL (1100-4500); Mean Corpuscular Hemoglobin 25.7 PG (26-34); Mean Corpuscular Volume 80.3 fL (80-100); Monocytes Absolute Auto 700 /uL (0-900); Monocytes Percent Auto 7.6 % (3-14); Neutrophils Absolute Auto 6100 /uL (1500-7000); Platelet Count 314 X10^3/uL (150-400); Red Blood Cell Count 4.65 X10^6/uL (4.0-5.2); Red Cell Distribution Width 16.8 % (11.6-14.8); White Blood Cell Count 8.9 X10^3/uL (4.5-11.0)
[2024-04-16 21:51] LABS: HEMOLYSIS < 15 (0-50); Iron 63 ug/dL (37-170)
[2024-04-16 21:56] LABS: Alanine Aminotransferase 29 IU/L (<35); Albumin 3.9 g/dL (3.5-5.0); Albumin Globulin Ratio 1.3 (1.0-2.8); Alkaline Phosphatase 70 U/L (38-126); Aspartate Aminotransferase 23 IU/L (14-36); Bilirubin Total 0.8 mg/dL (0.2-1.3); Blood Urea Nitrogen 14 mg/dL (7-17); Calcium 9.6 mg/dL (8.4-10.2); Carbon Dioxide 25 mmol/L (22-32); Chloride 105 mmol/L (98-107); Cholesterol 158 mg/dL (140-199); Estimated Glomerular Filt Rate > 60 mL/min (>60); Globulin 3.1 g/dL (1.7-4.1); Glucose 123 mg/dL (70-100); HDL Cholesterol 26 mg/dL (40-60); HEMOLYSIS < 15 (0-50); LDL Cholesterol Calculated 99 mg/dL (<100); Potassium 4.2 mmol/L (3.4-5.1); Sodium 138 mmol/L (137-145); Triglycerides 163 mg/dL (35-150)
[2024-04-16 22:04] LABS: Percent Iron Saturation 18 % (15-50); Total Iron Binding Capacity 358 ug/dL (265-497); Transferrin 266 mg/dL (206-381)
[2024-04-16 22:13] LABS: Vitamin D 25 Hydroxy (D3) 39.2 ng/mL (30.0-100.0)
[2024-04-16 22:22] LABS: TSH w/ Reflex to FT4 0.17 uIU/mL (0.47-4.68)
[2024-04-16 22:31] LABS: Ferritin 16 ng/mL (6-137)
[2024-04-16 22:57] LABS: Folate 12.2 ng/mL (2.76-20.0); Vitamin B12 801 pg/mL (239-931)
[2024-04-16 23:00] LABS: Free T4, Direct Thyroxine 1.04 ng/dL (0.78-2.19)
== END ==
PROVIDERS: PCP Family Medicine; Visit Provider Family Medicine
DX: R53.83 Other fatigue (principal); I10 Essential (primary) hypertension; E78.2 Mixed hyperlipidemia; E11.9 Type 2 diabetes mellitus without complications; Z90.3 Acquired absence of stomach [part of]
CPT/HCPCS: 80053; 80061; 82306; 82607; 82728; 82746; 83540; 83550; 84207; 84425; 84439; 84443; 85025